=== PATIENT | male | born 1965 | race Two or more races ===

== ENCOUNTER 2024-09-08 08:07 | Outpatient (CLI) | payer OTHER | END 2024-09-08 08:35 | disposition home or self-care (01) | LOC: RAD 08:07 | PROVIDERS: ATTEND Orthopaedic Surgery Sports Medicine | DX: M75.51 Bursitis of right shoulder (principal) | CPT/HCPCS: 73218 ==

== ENCOUNTER 2024-11-16 08:34 | Outpatient (CLI) | payer OTHER | END 2024-11-16 08:43 | disposition home or self-care (01) | LOC: RAD 08:34 | PROVIDERS: ATTEND Physical Medicine & Rehabilitation | DX: M25.512 Pain in left shoulder (principal); S42.012A Anterior displaced fracture of sternal end of left clavicle, initial encounter for closed fracture; X58.XXXA Exposure to other specified factors, initial encounter; Y93.9 Activity, unspecified; Y92.9 Unspecified place or not applicable; Y99.9 Unspecified external cause status ==